=== PATIENT | male | born 1995 | race Caucasian/White ===

== ENCOUNTER 2022-07-01 19:45 | Emergency (ER) | payer OTHER ==
[~2022-07-01] VITALS: Ht 182.8 cm; Wt 86.2 kg
== END 2022-07-01 20:11 | disposition home or self-care (01) ==
LOC: ED 19:45
DX: S01.81XA Laceration without foreign body of other part of head, initial encounter (principal); W54.1XXA Struck by dog, initial encounter; Y93.89 Activity, other specified; Y92.009 Unspecified place in unspecified non-institutional (private) residence as the place of occurrence of the external cause; Y99.8 Other external cause status